=== PATIENT | female | born 1950 | race African-American/Black ===

== ENCOUNTER 2021-01-13 06:09 | Day surgery (SDC) | payer OTHER ==
[2021-01-08 17:37] VITALS: BMI 29.7
[2021-01-13] MEDS ORDERED: LIDOCAINE 1%/EPI 1:100000 (20 ML MULTI DOSE VIAL) ONE (07:09)
[2021-01-13] MEDS ORDERED: ERYTHROMYCIN 0.5% OPHTHALMIC OINTMENT 3.5 GM TUBE ONE (07:09)
[2021-01-13] MEDS ORDERED: TETRACAINE 0.5% OPHTH SOLN 2 ML BOTTLE ONE (07:09)
[2021-01-13] MEDS ORDERED: POVIDONE-IODINE 5% OPHTHALMIC PREP 30 ML SOLUTION ONE (07:09)
[2021-01-13] MEDS ORDERED: BUPIVACAINE HCL 50 ML ONE (07:09)
[2021-01-13] MEDS ORDERED: THROMBIN (BOVINE) 5,000 UNIT VIAL TP ONE (07:09)
[2021-01-13] MEDS ORDERED: OXYMETAZOLINE 0.05% NASAL SOLUTION 15 ML BOTTLE NS ONE (07:09)
[2021-01-13] MEDS ORDERED: PROPOFOL 20 ML ONE (07:18)
[2021-01-13] MEDS ORDERED: MIDAZOLAM HCL 2 MG/2 ML SINGLE DOSE VIAL ONE (07:18)
[2021-01-13] MEDS ORDERED: LIDOCAINE HCL/PF 2% SDV 5ML VIAL ONE (07:42)
[2021-01-13] MEDS ORDERED: ceFAZolin SODIUM 1 GM VIAL ONE ×2 (07:50→07:52)
[2021-01-13] MEDS ORDERED: BSS (NA/CA/MG/K) BALANCED SALT SOLUTION OPHTH SOLN 15 ML BOTTLE ONE (07:53)
[2021-01-13] MEDS ORDERED: DEXAMETHASONE SOD PHOSPHATE 4 MG/1 ML VIAL ONE (07:59)
[2021-01-13] MEDS ORDERED: ONDANSETRON 4 MG/2 ML VIAL ONE ×2 (07:59→08:57)
[2021-01-13] MEDS ORDERED: MITOMYCIN 0.02% EYE DROPS - 2ML VIAL IO ONE (08:00)
[2021-01-13] MEDS ORDERED: ONDANSETRON 4 MG/2 ML VIAL IVPUSH PRN (09:38)
[2021-01-13] MEDS ORDERED: LACTATED RINGERS SOLUTION 1,000 ML IV SCH (09:45)
[2021-01-13 10:00] VITALS: TEMP 97.1
[2021-01-13] MEDS ORDERED: ACETAMINOPHEN 325 MG TABLET (FP) ONE (10:07)
[2021-01-13 10:26] VITALS: BP 143/63; PULSE 63
== END 2021-01-13 10:30 | disposition home or self-care (01) ==
LOC: FASU 06:09
PROVIDERS: ATTEND Ophthalmology
PROC: 081Y0Z3 Bypass Left Lacrimal Duct to Nasal Cavity, Open Approach (ICD-10-PCS; principal; 2021-01-13 08:01)
DX: H04.552 Acquired stenosis of left nasolacrimal duct (principal); H04.202 Unspecified epiphora, left side
CPT/HCPCS: 88304-TC

== ENCOUNTER 2023-09-27 12:01 | Day surgery (SDC) | payer OTHER ==
[2023-09-22 15:45] VITALS: BMI 29.7
[2023-09-27] MEDS ORDERED: TETRACAINE 0.5% OPHTH SOLN 2 ML BOTTLE ONE (13:26)
[2023-09-27] MEDS ORDERED: LIDOCAINE 1%/EPI 1:100000 (20 ML MULTI DOSE VIAL) ONE (13:26)
[2023-09-27] MEDS ORDERED: ceFAZolin SODIUM 1 GM VIAL ONE ×2 (13:26→14:03)
[2023-09-27] MEDS ORDERED: POVIDONE-IODINE 5% OPHTHALMIC PREP 30 ML SOLUTION ONE (13:26)
[2023-09-27] MEDS ORDERED: ERYTHROMYCIN 0.5% OPHTHALMIC OINTMENT 3.5 GM TUBE ONE (13:26)
[2023-09-27] MEDS ORDERED: MIDAZOLAM HCL 2 MG/2 ML SINGLE DOSE VIAL ONE ×2 (13:33→14:41)
[2023-09-27] MEDS ORDERED: PROPOFOL 20 ML ONE ×2 (13:33→14:33)
[2023-09-27] MEDS ORDERED: DEXAMETHASONE SOD PHOSPHATE 4 MG/1 ML VIAL ONE (14:03)
[2023-09-27] MEDS ORDERED: ONDANSETRON 4 MG/2 ML VIAL ONE (14:03)
[2023-09-27] MEDS ORDERED: oxyCODONE HCL 5 MG TABLET PO PRN (15:13)
[2023-09-27] MEDS ORDERED: ONDANSETRON 4 MG/2 ML VIAL IVPUSH PRN (15:13)
[2023-09-27] MEDS ORDERED: LACTATED RINGERS SOLUTION 1,000 ML IV SCH (15:15)
[2023-09-27 16:28] VITALS: RESP 19; TEMP 97.1
[2023-09-27 16:35] VITALS: BP 147/82; PULSE 64
== END 2023-09-27 16:35 | disposition home or self-care (01) ==
LOC: FASU 12:01
PROVIDERS: ATTEND Ophthalmology
PROC: 08SN0ZZ Reposition Right Upper Eyelid, Open Approach (ICD-10-PCS; principal; 2023-09-27 14:26)
DX: H02.401 Unspecified ptosis of right eyelid (principal)
CPT/HCPCS: 94760